=== PATIENT | female | born 1960 | race Two or more races ===

== ENCOUNTER → 2017-06-28 | Outpatient (CLI) | payer BC ==
[~2017-06-28] MED LIST: INDO50 PO; METHI10 PO; OXYACE5T PO; RXOXYACE PO
[2017-06-30 15:22] LABS: HPV Genotype 16 Not Detected (NOTDET); HPV Genotype 18 Not Detected (NOTDET)
[2017-07-07 07:50] LABS: HPV High Risk Other Not Detected (NOTDET)
== END | disposition home or self-care (01) ==
LOC: OLS 14:46
PROVIDERS: Nurse Practitioner Women's Health
DX: Z12.4 Encounter for screening for malignant neoplasm of cervix (principal); Z91.89 Other specified personal risk factors, not elsewhere classified
CPT/HCPCS: 87624; G0123

== ENCOUNTER → 2018-09-07 | Outpatient (CLI) | payer BC ==
[2018-09-08 14:07] LABS: HPV 16 Negative (Negative); HPV 18 Negative (Negative); HPV OTHER HR TYPES Positive (Negative)
== END | disposition home or self-care (01) ==
LOC: LAB 12:21 → LAB SHORT 12:21
PROVIDERS: Nurse Practitioner Women's Health
DX: Z12.4 Encounter for screening for malignant neoplasm of cervix (principal); Z91.89 Other specified personal risk factors, not elsewhere classified
CPT/HCPCS: 87624; G0123

== ENCOUNTER → 2019-05-22 | Outpatient (CLI) | payer BC ==
[2019-05-22 17:32] LABS: CHOL/HDL RATIO 5.4; Cholesterol 215 mg/dL (50-200); Free Thyroxine 1.11 ng/dL (0.70-1.60); HDL Cholesterol 40 mg/dL (>39); LDL/HDL RATIO 3.5; Low Density Lipoprotein Chol 138 mg/dL (0-110); Triglycerides 185 mg/dL (30-160); Very Low Density Lipoprot Chol 37 mg/dL (6-32)
== END | disposition home or self-care (01) ==
LOC: LAB SHORT 13:42 → LAB 13:42
PROVIDERS: Hospitalist
DX: E78.00 Pure hypercholesterolemia, unspecified (principal); I10 Essential (primary) hypertension
CPT/HCPCS: 80061; 84439; 84443

== ENCOUNTER → 2020-05-02 | Outpatient (CLI) | payer BC ==
[2020-05-04 17:18] LABS: CORONAVIRUS (COVID19) CSH-NRL Negative (Negative)
== END | disposition home or self-care (01) ==
LOC: LAB SHORT 15:50 → LAB 15:50
PROVIDERS: Physician Assistant Surgical
DX: R05 Cough (principal); Z20.828 Contact with and (suspected) exposure to other viral communicable diseases
CPT/HCPCS: U0003

== ENCOUNTER 2022-01-19 12:39 | Day surgery (SDC) | payer BC ==
[~2022-01-19] VITALS: Ht 162.6 cm; Wt 77.7 kg
[~2022-01-19 12:39] MED LIST changes: +ALBU90OI INH; +COMBIVENT RESPIM4 G1; +DILTIAZEM 24HR360 MG PO; +ESCI10 PO; +SYMBICORT 160-4.6 GM
== END 2022-01-19 14:18 | disposition home or self-care (01) ==
LOC: ORSCSDS 12:39
PROVIDERS: Internal Medicine Gastroenterology
PROC: 0DBM8ZX Excision of Descending Colon, Via Natural or Artificial Opening Endoscopic, Diagnostic (ICD-10-PCS; principal; 2022-01-19 14:00)
DX: Z12.11 Encounter for screening for malignant neoplasm of colon (principal); D12.4 Benign neoplasm of descending colon; K57.30 Diverticulosis of large intestine without perforation or abscess without bleeding; R12 Heartburn; Z79.899 Other long term (current) drug therapy
CPT/HCPCS: 88305; A9270; J2704; J7120

== ENCOUNTER → 2023-06-01 | Outpatient (CLI) | payer BC ==
[2023-06-01 15:45] LABS: BASOPHILS ABSOLUTE AUTO 0.04 K/mm3 (0.00-0.23); BASOPHILS PERCENT AUTO 1 % (0-2); EOSINOPHILS ABSOLUTE AUTO 0.61 K/mm3 (0.00-0.68); EOSINOPHILS PERCENT AUTO 7 % (0-6); Hematocrit 36.3 % (33.0-51.0); Hemoglobin 12.5 g/dL (11.5-16.0); IMMATURE GRAN ABSOLUTE AUTO 0.02 K/mm3 (0.00-0.10); IMMATURE GRAN PERCENT AUTO 0 % (0-1); LYMPHOCYTES ABSOLUTE AUTO 2.27 K/mm3 (0.84-5.20); LYMPHOCYTES PERCENT AUTO 27 % (21-46); MONOCYTES ABSOLUTE AUTO 0.45 K/mm3 (0.16-1.47); MONOCYTES PERCENT AUTO 5 % (4-13); Mean Corpuscular HGB 32.4 pg (26.0-34.0); Mean Corpuscular HGB Conc 34.4 g/dL (31.5-36.5); Mean Corpuscular Volume 94 fL (80-100); Mean Platelet Volume 10.4 fL (9.1-12.4); NEUTROPHILS PERCENT AUTO 60 % (41-73); Platelet Count 268 K/mm3 (150-400); RDW Coefficient Variation 12.7 % (11.7-14.2); RDW Standard Deviation 43.5 fL (35.1-46.3); Red Blood Cell Count 3.86 M/mm3 (3.80-5.20); White Blood Cell Count 8.49 K/mm3 (4.00-11.30)
== END | disposition home or self-care (01) ==
LOC: LAB 14:12 → LAB SHORT 14:12
PROVIDERS: Hospitalist
DX: R06.02 Shortness of breath (principal)
CPT/HCPCS: 85025

== ENCOUNTER → 2024-04-12 | Outpatient (CLI) | payer BC ==
[2024-04-12 14:51] LABS: Bun/Creatinine Ratio 17.4 (12.0-20.0); Calcium, Blood 9.2 mg/dL (8.5-10.1); Creatinine, Blood 1.21 mg/dL (0.40-1.00)
== END | disposition home or self-care (01) ==
LOC: LAB 09:00 → LAB SHORT 09:00
PROVIDERS: Hospitalist
DX: I10 Essential (primary) hypertension (principal)
CPT/HCPCS: 80048

== ENCOUNTER → 2024-10-10 | Outpatient (CLI) | payer BC ==
[2024-10-10 15:20] LABS: Bun/Creatinine Ratio 18.5 (12.0-20.0); Calcium, Blood 9.5 mg/dL (8.5-10.1); Creatinine, Blood 1.19 mg/dL (0.40-1.00)
[2024-10-12 12:07] LABS: CHOL/HDL RATIO 5.9; Cholesterol 223 mg/dL (50-200); HDL Cholesterol 38 mg/dL (>39); LDL/HDL RATIO 3.3; Low Density Lipoprotein Chol 127 mg/dL (0-110); Triglycerides 290 mg/dL (30-160); Very Low Density Lipoprot Chol 58 mg/dL (6-32)
== END | disposition home or self-care (01) ==
LOC: LAB 10:55 → LAB SHORT 10:55
PROVIDERS: Hospitalist
DX: I12.9 Hypertensive chronic kidney disease with stage 1 through stage 4 chronic kidney disease, or unspecified chronic kidney disease (principal); N18.9 Chronic kidney disease, unspecified
CPT/HCPCS: 80048; 80061; 83036